=== PATIENT | male | born 1995 ===

== ENCOUNTER 2017-07-03 15:42 | Emergency (ER) | payer MEDICAID, OTHER ==
[2017-07-03 15:42] VITALS: BMI 25.0
[2017-07-03 16:01] VITALS: TEMP 98.2
[2017-07-03] MEDS ORDERED: Sodium Chloride 0.9% 1,000 ML IV STA (16:27)
--- NOTE | 2017-07-03 16:30 | ED PDOC ---
HPI: Abdomen Time Seen by Provider: 07/03/17 16:15 Chief Complaint (Nursing): Abdominal Pain Chief Complaint (Provider): Abdominal Pain History Per: Patient History/Exam Limitations: no limitations Onset/Duration Of Symptoms: Days (x1) Current Symptoms Are (Timing): Still Present Additional Complaint(s): Sinan Kirkland is a 22 year old male presenting to the ED for an evaluation of epigastric abdominal pain associated with diarrhea occurring for 1 day prior to arrival. The patient denies vomiting or fever. PMD: Rosalio Riley MD Past Medical History Reviewed: Historical Data, Nursing Documentation, Vital Signs Vital Signs: Last Vital Signs Temp 98.2 F 07/03/17 18:21 Pulse 70 07/03/17 18:21 Resp 17 07/03/17 18:21 BP 115/58 L 07/03/17 18:21 Pulse Ox 100 07/03/17 19:50 - Medical History PMH: No Chronic Diseases Denies: Chronic Kidney Disease - Surgical History Surgical History: No Surg Hx - Family History Family History: States: No Known Family Hx - Immunization History Hx Tetanus Toxoid Vaccination: Yes Hx Influenza Vaccination: No Hx Pneumococcal Vaccination: No - Home Medications Home Medications: Ambulatory Orders Medication Instructions Recorded Famotidine [Pepcid] 20 mg PO BID PRN #40 tab 07/03/17 - Allergies Allergies/Adverse Reactions: Allergies Allergy/AdvReac Type Severity Reaction Status Date / Time No Known Allergies Allergy Verified 07/03/17 15:58 Review of Systems ROS Statement: Except As Marked, All Systems Reviewed And Found Negative Constitutional: Negative for: Fever Gastrointestinal: Positive for: Abdominal Pain (epigastric), Diarrhea. Negative for: Vomiting Physical Exam - Reviewed Nursing Documentation Reviewed: Yes Vital Signs Reviewed: Yes - Physical Exam Appears: Positive for: Non-toxic, No Acute Distress Head Exam: Positive for: ATRAUMATIC, NORMOCEPHALIC Skin: Positive for: Normal Color, Warm, Dry Eye Exam: Positive for: Normal appearance, EOMI ENT: Positive for: Normal ENT Inspection Neck: Positive for: Normal, Painless ROM Cardiovascular/Chest: Positive for: Regular Rate, Rhythm, Chest Non Tender Respiratory: Positive for: Normal Breath Sounds. Negative for: Respiratory Distress Gastrointestinal/Abdominal: Positive for: Bowel Sounds (present), Soft, Tenderness (mild epigastric tenderness) Back: Positive for: Normal Inspection Extremity: Positive for: Normal ROM. Negative for: Deformity Neurologic/Psych: Positive for: Alert, Oriented (x3). Negative for: Motor/ Sensory Deficits - Laboratory Results Result Diagrams: 07/03/17 16:59 07/03/17 16:59 - ECG O2 Sat by Pulse Oximetry: 98 (RA) Pulse Ox Interpretation: Normal Medical Decision Making Medical Decision Making: Time: 16:15 Impression: Epigastric abdominal pain Plan: * CMP * CBC (with differential) * NS 0.9% 1,000 ml IV 100 mls/hr * Pepcid 20 mg IVP * Reevaluation Scribe Attestation: Documented by Ramila Lindsey, acting as a scribe for Javier Dickerson MD. Provider Scribe Attestation: All medical record entries made by the Scribe were at my direction and personally dictated by me. I have reviewed the chart and agree that the record accurately reflects my personal performance of the history, physical exam, medical decision making, and the department course for this patient. I have also personally directed, reviewed, and agree with the discharge instructions and disposition. Disposition - Clinical Impression Clinical Impression: Abdominal pain - Patient ED Disposition Is Patient to be Admitted: Transfer of Care - Disposition Referrals: [facility] [Outside] (2 to 3 days) Disposition: Transfer of Care Disposition Time: 17:00 Condition: GOOD Prescriptions: Famotidine [Pepcid] 20 mg PO BID PRN #40 tab PRN Reason: Pain, Moderate (4-7) Instructions: Acute Abdominal Pain (ED) Forms: [employer] (Niuean) Patient Signed Over To: Jaleesa Nixon
[2017-07-03 17:09] LABS: BASO % 0.5 % (0.0-2.0); EOS # 0.1 K/uL (0.0-0.7); EOS % 0.6 % (0.0-4.0); HEMATOCRIT 44.8 % (35.0-51.0); LYMPH # 2.8 K/uL (1.0-4.3); LYMPH % 30.7 % (20.0-40.0); MEAN CELL VOLUME 83.1 fl (80.0-94.0); MEAN CORPUSCULAR HEMOGLOBIN 26.7 pg (27.0-31.0); MEAN CORPUSCULAR HGB CONC 32.2 g/dL (33.0-37.0); MEAN PLATELET VOLUME 6.8 fl (7.2-11.7); MONO # 0.7 K/uL (0.0-0.8); MONO % 7.2 % (0.0-10.0); NEUT # 5.6 K/uL (1.8-7.0); WHITE BLOOD COUNT 9.1 K/uL (4.8-10.8)
[2017-07-03 17:35] LABS: ALB/GLOB RATIO 1.6 (1.0-2.1); ALKALINE PHOSPHATASE 57 U/L (38-126); ALT/SGPT 52 U/L (21-72); AST/SGOT 43 U/L (17-59); BILIRUBIN,TOTAL 0.7 mg/dl (0.2-1.3); BLOOD UREA NITROGEN 15 mg/dl (9-20); CALCIUM 9.7 mg/dL (8.4-10.2); CARBON DIOXIDE 28 mmol/L (22-30); CHLORIDE 102 mmol/L (98-107); GFR AFRICAN-AMERICAN > 60; GLUCOSE,RANDOM 89 mg/dL (75-110); POTASSIUM 4.2 MMOL/L (3.6-5.0); SODIUM 141 mmol/l (132-148); TOTAL PROTEIN 7.7 G/DL (6.3-8.2)
[2017-07-03 18:21] VITALS: BP 115/58; PULSE 70; RESP 17
--- NOTE | 2017-07-03 19:49 | ED PDOC ---
- Laboratory Results Result Diagrams: 07/03/17 16:59 07/03/17 16:59 - ECG O2 Sat by Pulse Oximetry: 100 Pulse Ox Interpretation: Normal - Progress ED Course And Treament: labs all nml, repeat abd exam revelas no tenderness advise pepcid and close pmd f/u all of pt's question were answered and ot agree's with plann. Re-evaluation Time: 19:47 Condition: Improved Disposition Counseled Patient/Family Regarding: Studies Performed, Diagnosis, Need For Followup - Clinical Impression Clinical Impression: Abdominal pain - POA Present On Arrival: None - Disposition Referrals: [facility] [Outside] (2 to 3 days) Disposition: Routine/Home Disposition Time: 19:48 Condition: GOOD Prescriptions: Famotidine [Pepcid] 20 mg PO BID PRN #40 tab PRN Reason: Pain, Moderate (4-7) Instructions: Acute Abdominal Pain (ED) Forms: [employer] (Bengali)
[2017-07-05 10:57] VITALS: O2SAT 98
== END 2017-07-03 20:14 | disposition home or self-care (01) ==
LOC: H.ER 15:42
DX: R10.13 Epigastric pain (principal)
CPT/HCPCS: 80053; 80329; 85025; 96361; 96374; 99283; J7040

== ENCOUNTER 2017-07-05 14:28 | Emergency (ER) | payer MEDICAID ==
[2017-07-05 14:28] VITALS: BMI 25.0
[2017-07-05 14:41] VITALS: BP 123/80; PULSE 78; TEMP 97; O2SAT 100
[2017-07-05 15:14] VITALS: RESP 20
--- NOTE | 2017-07-05 16:14 | ED PDOC ---
HPI: General Adult Time Seen by Provider: 07/05/17 15:00 Chief Complaint (Nursing): Shortness Of Breath Chief Complaint (Provider): Shortness Of Breath History Per: Patient History/Exam Limitations: no limitations Onset/Duration Of Symptoms: Days (x 2) Current Symptoms Are (Timing): Still Present Additional Complaint(s): Sinan is a 22 year old male who presents to the emergency department complaining of shortness of breath earlier today (12:00), onset while driving. Patient reports tightness when taking breath, but not worse when moving. Patient states he felt shortness of breath last night as well, onset while watching TV. Denies fever, coughing and pain after eating something. Patient states he use to get chest pain as minor, but would go away. Denies ever getting an electrocardiogram. Denies family history of heart problems or blood clots. PMD: Rosalio Riley Past Medical History Reviewed: Historical Data, Nursing Documentation, Vital Signs Vital Signs: Last Vital Signs Temp 97.0 F L 07/05/17 14:39 Pulse 78 07/05/17 14:39 Resp 20 07/05/17 15:08 BP 123/80 07/05/17 14:39 Pulse Ox 100 07/05/17 17:46 - Medical History PMH: Denies: Chronic Kidney Disease - Surgical History Surgical History: Tonsillectomy - Family History Family History: States: No Known Family Hx - Social History Current smoker - smoking cessation education provided: No Alcohol: None Drugs: Denies - Immunization History Hx Tetanus Toxoid Vaccination: Yes Hx Influenza Vaccination: No Hx Pneumococcal Vaccination: No - Home Medications Home Medications: Ambulatory Orders Medication Instructions Recorded Famotidine [Pepcid] 20 mg PO BID PRN #40 tab 07/03/17 Naproxen [Naprosyn] 500 mg PO Q12H #20 tab 07/05/17 - Allergies Allergies/Adverse Reactions: Allergies Allergy/AdvReac Type Severity Reaction Status Date / Time No Known Allergies Allergy Verified 07/05/17 14:39 Review of Systems ROS Statement: Except As Marked, All Systems Reviewed And Found Negative Constitutional: Negative for: Fever Cardiovascular: Positive for: Chest Pain, Other (Chest tightness when taking breath) Respiratory: Positive for: Shortness of Breath. Negative for: Cough Physical Exam - Reviewed Nursing Documentation Reviewed: Yes Vital Signs Reviewed: Yes - Physical Exam Appears: Positive for: Non-toxic, No Acute Distress Skin: Positive for: Normal Color, Warm, Dry Cardiovascular/Chest: Positive for: Regular Rate, Rhythm Respiratory: Positive for: Normal Breath Sounds. Negative for: Respiratory Distress Gastrointestinal/Abdominal: Positive for: Soft. Negative for: Tenderness Extremity: Positive for: Normal ROM. Negative for: Swelling (Leg) Neurologic/Psych: Positive for: Alert, Oriented - Laboratory Results Result Diagrams: 07/05/17 16:56 07/05/17 16:56 - ECG O2 Sat by Pulse Oximetry: 100 (RA) Pulse Ox Interpretation: Normal Medical Decision Making Medical Decision Making: Time: 15:55 Plan: chest pain, no cardiac or PE risk factors. pt appears very comfortable ddx cardiac, pe, muscular, pneumonia - CMP - Troponin I - CBC - D-Dimer - Chest X-Ray - Tylenol 325 mg Tab Scribe Attestation: Documented by Karson Dozier, acting as a scribe for Compa Villalba MD Provider Scribe Attestation: All medical record entries made by the Scribe were at my direction and personally dictated by me. I have reviewed the chart and agree that the record accurately reflects my personal performance of the history, physical exam, medical decision making, and the department course for this patient. I have also personally directed, reviewed, and agree with the discharge instructions and disposition. Disposition - Clinical Impression Clinical Impression: Pleuritic chest pain - Patient ED Disposition Is Patient to be Admitted: Transfer of Care - Disposition Referrals: [facility] [Outside] Disposition: Transfer of Care Disposition Time: 16:40 Condition: FAIR Prescriptions: Naproxen [Naprosyn] 500 mg PO Q12H #20 tab Instructions: Pleurisy (ED) Forms: [employer] ([place] Islander) Patient Signed Over To: Javier Dickerson Handoff Comments: pending workup and dispo
--- NOTE | 2017-07-05 16:52 | RAD ---
HISTORY: chest pain COMPARISON: Chest radiograph dated 07/26/2010. TECHNIQUE: Chest PA and lateral FINDINGS: LUNGS: No active pulmonary disease. PLEURA: No significant pleural effusion identified. No pneumothorax apparent. CARDIOVASCULAR: Normal. OSSEOUS STRUCTURES: No significant abnormalities. VISUALIZED UPPER ABDOMEN: Normal. OTHER FINDINGS: None. IMPRESSION: No active disease.
[2017-07-05 16:59] LABS: BASO % 0.2 % (0.0-2.0); EOS # 0.2 K/uL (0.0-0.7); EOS % 1.9 % (0.0-4.0); HEMATOCRIT 44.8 % (35.0-51.0); LYMPH # 2.6 K/uL (1.0-4.3); LYMPH % 30.6 % (20.0-40.0); MEAN CELL VOLUME 83.7 fl (80.0-94.0); MEAN CORPUSCULAR HEMOGLOBIN 26.8 pg (27.0-31.0); MEAN CORPUSCULAR HGB CONC 32.1 g/dL (33.0-37.0); MEAN PLATELET VOLUME 6.8 fl (7.2-11.7); MONO # 0.8 K/uL (0.0-0.8); MONO % 9.2 % (0.0-10.0); NEUT % 58.1 % (50.0-75.0); NRBC % 0.1 % (0.0-0.0); RED CELL DISTRIBUTION WIDTH 14.2 % (11.5-14.5); WHITE BLOOD COUNT 8.6 K/uL (4.8-10.8)
--- NOTE | 2017-07-05 17:17 | ED PDOC ---
- Laboratory Results Result Diagrams: 07/05/17 16:56 07/05/17 16:56 - ECG O2 Sat by Pulse Oximetry: 100 (RA) Medical Decision Making Medical Decision Making: Time: 17:00 --Patient signed to me endorsed by Dr. Villalba, pending labs, x-ray and reevaluation. Scribe Attestation: Documented by Corina Santos, acting as a scribe for Javier Dickerson MD Provider Scribe Attestation: All medical record entries made by the Scribe were at my direction and personally dictated by me. I have reviewed the chart and agree that the record accurately reflects my personal performance of the history, physical exam, medical decision making, and the department course for this patient. I have also personally directed, reviewed, and agree with the discharge instructions and disposition. Disposition - Clinical Impression Clinical Impression: Pleuritic chest pain - POA Present On Arrival: None - Disposition Referrals: [facility] [Outside] Disposition: Routine/Home Disposition Time: 17:46 Condition: FAIR Prescriptions: Naproxen [Naprosyn] 500 mg PO Q12H #20 tab Instructions: Pleurisy (ED) Forms: [employer] (Vietnamese)
[2017-07-05 17:34] LABS: ALB/GLOB RATIO 1.5 (1.0-2.1); ALKALINE PHOSPHATASE 51 U/L (38-126); ALT/SGPT 75 U/L (21-72); AST/SGOT 133 U/L (17-59); BILIRUBIN,TOTAL 0.6 mg/dl (0.2-1.3); BLOOD UREA NITROGEN 17 mg/dl (9-20); CALCIUM 9.9 mg/dL (8.4-10.2); CARBON DIOXIDE 28 mmol/L (22-30); CHLORIDE 103 mmol/L (98-107); GFR AFRICAN-AMERICAN > 60; GLUCOSE,RANDOM 84 mg/dL (75-110); POTASSIUM 4.5 MMOL/L (3.6-5.0); SODIUM 142 mmol/l (132-148); TOTAL PROTEIN 7.5 G/DL (6.3-8.2)
--- NOTE | 2017-07-07 16:02 | CARD ---
APPROVED REPORT EKG Measurement Heart [id number] <Conclusion> Normal sinus rhythm Normal ECG
== END 2017-07-05 18:42 | disposition home or self-care (01) ==
LOC: H.ER 14:28
DX: R07.81 Pleurodynia (principal)